=== PATIENT | female | born 1995 | race Caucasian/White ===

== ENCOUNTER 2018-05-22 22:18 | Emergency (ER) | payer OTHER ==
[~2018-05-22] VITALS: Ht 162.6 cm; Wt 86.2 kg
[2018-05-22 22:27] VITALS: Ht 162.6 cm; Wt 86.2 kg
[2018-05-22 23:47] VITALS: BP 106/57
== END 2018-05-22 23:47 | disposition home or self-care (01) ==
LOC: ED 22:18
DX: S91.012A Laceration without foreign body, left ankle, initial encounter (principal); W17.89XA Other fall from one level to another, initial encounter; Y93.I9 Activity, other involving external motion; Y92.89 Other specified places as the place of occurrence of the external cause; Y99.8 Other external cause status
CPT/HCPCS: 90715

== ENCOUNTER → 2019-09-02 | Outpatient (CLI) | payer OTHER | END | disposition home or self-care (01) | LOC: MI 13:27 | PROC: BR39ZZZ Magnetic Resonance Imaging (MRI) of Lumbar Spine (ICD-10-PCS; principal; 2019-09-02) | DX: M54.5 Low back pain (principal) ==

== ENCOUNTER 2020-08-04 21:47 | Emergency (ER) | payer OTHER ==
[~2020-08-04] VITALS: Ht 162.6 cm; Wt 77.6 kg
[2020-08-04 21:54] VITALS: Ht 162.6 cm; Wt 77.6 kg
[2020-08-05 00:15] VITALS: BP 118/67
== END 2020-08-04 23:30 | disposition home or self-care (01) ==
LOC: ED 21:47
DX: F10.10 Alcohol abuse, uncomplicated (principal); R51.9 Headache, unspecified; R11.0 Nausea
CPT/HCPCS: Q0162